=== PATIENT | male | born 1960 | race Caucasian/White ===

== ENCOUNTER 2019-02-24 10:12 | Emergency (ER) | payer OTHER ==
[2019-02-24 10:28] VITALS: BP 154/90
--- NOTE | 2019-02-24 10:39 | PHYS DOC ---
Past History Past Medical History: No Pertinent History Past Surgical History: No Surgical History Alcohol Use: None Drug Use: None Adult General Chief Complaint Chief Complaint: CONSTIPATION HPI HPI Patient is a [58-year-old male with lower abdominal discomfort and constipation no bowel movements for a week as a history of an anal fissure he tells me but denies any history of malignancy or abdominal surgeries this has not happened to him before there is just hard for him to have a bowel movement he was referred in by his primary doctor does not take any daily medications has tried [id number] stool softeners with no real relief Review of Systems Review of Systems Constitutional: Denies fever or chills [] Eyes: Denies change in visual acuity, redness, or eye pain [] HENT: Denies nasal congestion or sore throat [] Respiratory: Denies cough or shortness of breath [] Musculoskeletal: Denies back pain or joint pain [] Integument: Denies rash or skin lesions [] Neurologic: Denies headache, focal weakness or sensory changes [] Endocrine: Denies polyuria or polydipsia [] All other systems were reviewed and found to be within normal limits, except as documented in this note. Current Medications Current Medications Current Medications Medications (Trade) Dose Ordered Sig/Keyla Start Time Stop Time Status Last Admin Dose Admin Fentanyl Citrate (Fentanyl 2ml Vial) 50 mcg 1X ONCE 02/24/19 10:45 02/24/19 10:46 UNV Sodium Chloride 1,000 ml @ 1,000 mls/hr 1X ONCE 02/24/19 10:45 02/24/19 11:44 UNV Allergies Allergies Allergies Coded Allergies Type Severity Reaction Last Updated Verified No Known Drug Allergies 02/24/19 No Physical Exam Physical Exam Constitutional: Well developed, well nourished, no acute distress, non-toxic appearance. [] HENT: Normocephalic, atraumatic, bilateral external ears normal, oropharynx moist, no oral exudates, nose normal. [] Eyes: PERRLA, EOMI, conjunctiva normal, no discharge. [] Neck: Normal range of motion, no tenderness, supple, no stridor. [] Pulmonary: Normal respiratory effort no increased work of breathing no obvious chest wall trauma Abdomen: Bowel sounds normal, soft, suprapubic tenderness, no masses, no pulsatile masses. [] rectal ttp noted as well no blood. Skin: Warm, dry, no erythema, no rash. [] Back: No tenderness, no CVA tenderness. [] Extremities: No tenderness, no cyanosis, no clubbing, ROM intact, no edema. [] Neurologic: Alert and oriented X 3, normal motor function, normal sensory function, no focal deficits noted. [] Psychologic: Affect normal, judgement normal, mood normal. [] Current Patient Data Vital Signs Vital Signs Date Time Temp Pulse Resp B/P (MAP) Pulse Ox O2 Delivery O2 Flow Rate FiO2 02/24/19 10:28 97.5 96 18 98 Room Air EKG EKG [] Radiology/Procedures Radiology/Procedures []ne Temperature (Fahrenheit): * 97.5 degrees F (97.6-99.5) L Patient Temperature * 97.5 degrees F (97.5-99.5) L Temperature Source * Oral Blood Pressure Systolic * 154 mm Hg (100-140) H Blood Pressure Diastolic * 90 mm Hg (60-100) Blood Pressure Mean * 111 mm Hg Pulse Rate * 96 beats per minute (60-90) H Impressions: IMPRESSION: 1. Large abscess identified in the right lower quadrant abdomen abutting the redundant sigmoid colon and cecum. The source of abscess is difficult to evaluate could be sigmoid colon diverticulitis or an appendiceal abscess. 2. A 2.2 cm cystic structure identified in the right lobe of the liver could be a cyst or cystic lesion. Follow-up MRI can be considered. 3. 6.5 mm nodule right middle lobe of the lung. Follow-up CT per Fleischner Society guidelines in 6 months. Course & Med Decision Making Course & Med Decision Making Pertinent Labs and Imaging studies reviewed. (See chart for details) [] i told the patient about the need for repeat imaging and follow up in6 months with primary doctor regrading incidental ct finding i spoke ale mckee accepted patient spoke with jackie will consult at [facility]. bri given no peritoneal signs on exam Dragon Disclaimer Dragon Disclaimer This electronic medical record was generated, in whole or in part, using a voice recognition dictation system. Departure Departure: Impression: Primary Impression: Intra-abdominal abscess Disposition: XFER SHT-TRM HOSP Condition: STABLE Referrals: ZEKE DURAN MD (PCP) JANET KWOK MD Feb 24, 2019 10:39
[2019-02-24] MEDS ORDERED: IV NORMAL SALINE 1,000ML 1,000 ML IV ONE (10:45)
[2019-02-24 11:12] LABS: BASO # 0.1 x10^3/uL (0.0-0.2); BASO % 0 % (0-3); EOS # 0.1 x10^3/uL (0.0-0.7); EOS % 1 % (0-3); HEMATOCRIT 46.5 % (39.0-53.0); HEMOGLOBIN 15.9 g/dL (13.0-17.5); LYMPH # 0.8 x10^3/uL (1.0-4.8); LYMPH % 6 % (24-48); MEAN CORPUSCULAR HEMOGLOBIN 32 pg (25-35); MEAN CORPUSCULAR HGB CONC 34 g/dL (31-37); MEAN CORPUSCULAR VOLUME 95 fL (79-100); MONO # 1.5 x10^3/uL (0.0-1.1); MONO % 11 % (0-9); NEUT # 11.5 x10^3uL (1.8-7.7); NEUT % 83 % (31-73); PLATELET COUNT 358 x10^3/uL (140-400); RED CELL DISTRIBUTION WIDTH 12.8 % (11.5-14.5); WHITE BLOOD COUNT 13.9 x10^3/uL (4.0-11.0)
[2019-02-24 11:24] LABS: ALBUMIN 3.3 g/dL (3.4-5.0); ALBUMIN/GLOBULIN RATIO 0.8 (1.0-1.7); CALCIUM 9.1 mg/dL (8.5-10.1); CREATININE 0.9 mg/dL (0.7-1.3); GFR 86.1; POTASSIUM 3.9 mmol/L (3.5-5.1); TOTAL BILIRUBIN 0.9 mg/dL (0.2-1.0); TOTAL PROTEIN 7.7 g/dL (6.4-8.2)
[2019-02-24] MEDS ORDERED: IOHEXOL 300 MG/ML 75 ML VIAL. IV ONE (11:45)
[2019-02-24 11:47] LABS: BACTERIA,URINE 0 /HPF (0-FEW); BILIRUBIN,URINE NEG (NEG); CLARITY,URINE CLEAR; COLOR,URINE AMBER; GLUCOSE,URINE NEG (NEG); NITRITE,URINE NEG (NEG); UROBILINOGEN,URINE 0.2 mg/dL (0.2 mg/dL); WBC,URINE RARE /HPF (0-4)
--- NOTE | 2019-02-24 12:25 | RAD ---
Examination: CT of the abdomen pelvis with IV contrast HISTORY: History of left lower quadrant abdominal pain, constipation COMPARISON: None available TECHNIQUE: Axial CT images of the abdomen pelvis were performed with IV contrast. Coronal and sagittal reformats are performed. Exposure: One or more of the following individualized dose reduction techniques were utilized for this examination: 1. Automated exposure control 2. Adjustment of the mA and/or kV according to patient size 3. Use of iterative reconstruction technique FINDINGS: Partially visualized 6.5 mm nodule identified in the right middle lobe of the lung. The bibasilar lungs are clear. No evidence of free air identified in the abdomen. Diffuse decreased attenuation noted in the liver likely hepatic steatosis. There is a cystic hypodensity identified in the right lobe of the liver measuring 2.2 cm. The spleen, adrenals grossly appears unremarkable. The stomach is minimally distended. The visualized pancreas grossly appears unremarkable. The small bowel is nondilated. There is a large fluid collection with multiple foci of air identified in the right lower quadrant of the abdomen abutting the sigmoid colon and the cecum measuring 7.5 x 6.7 cm likely abscess with surrounding inflammatory fat stranding. Urinary bladder is mildly distended. Mild thickened appearance of the urinary bladder wall. Small amount of fluid free fluid identified in the pelvis The bilateral kidneys enhance symmetrically. Moderate degenerative changes thoracolumbar spine. IMPRESSION: 1. Large abscess identified in the right lower quadrant abdomen abutting the redundant sigmoid colon and cecum. The source of abscess is difficult to evaluate could be sigmoid colon diverticulitis or an appendiceal abscess. 2. A 2.2 cm cystic structure identified in the right lobe of the liver could be a cyst or cystic lesion. Follow-up MRI can be considered. 3. 6.5 mm nodule right middle lobe of the lung. Follow-up CT per Fleischner Society guidelines in 6 months. Electronically signed by: Chintan Orellana MD (02/24/2019 12:22 PM) [id number]
[2019-02-24] MEDS ORDERED: PIPERACILLIN/TAZOBACTAM 3.375 GM in IV NORMAL SALINE 50ML 50 ML IV ONE (12:45)
[2019-02-24] MEDS ORDERED: PIPERACILLIN/TAZOBACTAM 3.375 GM VIAL IV ONE (12:47)
[2019-02-24] MEDS ORDERED: IV NORMAL SALINE 50ML 50 ML ONE (12:47)
[2019-02-24] MEDS ORDERED: MORPHINE SULFATE 4 MG/ML DISP.SYRIN. IV ONE (13:00)
[2019-02-24] MEDS ORDERED: ONDANSETRON PF 4 MG/2 ML VIAL. IVP ONE (13:00)
== END 2019-02-24 14:10 | disposition short-term general hospital (02) ==
LOC: ER 10:12
DX: K65.1 Peritoneal abscess (principal)
CPT/HCPCS: 36415; 74177; 80053; 81001; 85025; 96365; 96375; 99285; J2270; J2405; J2543; J3010; Q9967; 96361; J7030

== ENCOUNTER 2020-04-03 08:38 | Emergency (ER) | payer OTHER ==
[~2020-04-03] VITALS: Ht 182.9 cm; Wt 99.7 kg
--- NOTE | 2020-04-03 09:14 | PHYS DOC ---
Past History Past Medical History: Alcoholism, Diverticulitis Past Surgical History: Other Additional Past Surgical Histo: RECTUM SURGERY, SURGERY DIVERTICULITIS Smoking: Non-smoker Alcohol Use: Occasionally Additional Alcohol Information: DRINKS 5-6 BEERS NIGHTLY Drug Use: None Adult General Chief Complaint Chief Complaint: ABDOMINAL PAIN HPI HPI Patient is a 59-year-old male presenting for lower abdominal pain. Reports this started yesterday evening while at rest. Nothing known makes better, certain body movements make worse. Pain is diffuse throughout abdomen but more focal in suprapubic area. States it is currently 7 out of 10 in severity at this time. Timing of symptoms has waxed and waned but has been more constant over past 4 hours prompting him to come in to visit our ER today. Reports history of diverticulitis in the past requiring hospitalization, does not know if this feels like prior episode. He sees a primary care physician and does not have any known medical diagnoses, takes Colace daily but no other medications. He does admit to heavy alcohol use and consumes 5-6 beers nightly. He denies any fever, URI-like symptoms, COVID-19 contact, chest pain, shortness of breath, urinary symptoms, changes in bladder or bowel function, no neurologic deficits noted. He has never had surgery on his abdomen, his never had an ultrasound of his abdomen Review of Systems Review of Systems Fourteen body systems of review of systems have been reviewed. See HPI for pertinent positives and negative responses, other reeves all other systems are negative, non-pertinent or non-contributory Allergies Allergies Allergies Coded Allergies Type Severity Reaction Last Updated Verified No Known Drug Allergies 04/03/20 No Physical Exam Physical Exam Constitutional: Well developed, well nourished, no acute distress, non-toxic appearance. HENT: Normocephalic, atraumatic, bilateral external ears normal, oropharynx moist, no oral exudates, nose normal. Eyes: PERRLA, EOMI, conjunctiva normal, no discharge. Neck: Normal range of motion, no tenderness, supple, no stridor. Cardiovascular: Heart rate regular, sinus rhythm, no murmurs rubs or gallops Lungs & Thorax: Bilateral breath sounds clear to auscultation Abdomen: Bowel sounds normal, soft, diffusely tender with guarding present, no rebound, no masses, no pulsatile masses. No peritoneal signs Skin: Warm, dry, no erythema, no rash. Back: No tenderness, no CVA tenderness. Extremities: No tenderness, no cyanosis, no clubbing, ROM intact, no edema. Neurologic: Alert and oriented X 3, grossly normal motor & sensory function, no focal deficits noted. Psychologic: Affect normal, judgement normal, mood normal. Current Patient Data Vital Signs Vital Signs Date Time Temp Pulse Resp B/P (MAP) Pulse Ox O2 Delivery O2 Flow Rate FiO2 04/03/20 08:56 99.8 114 18 126/77 (93) 96 Room Air Lab Results Laboratory Tests Test 04/03/20 09:35 04/03/20 11:30 White Blood Count 10.4 x10^3/uL (4.0-11.0) Red Blood Count 4.59 x10^6/uL (4.30-5.70) Hemoglobin 15.2 g/dL (13.0-17.5) Hematocrit 44.1 % (39.0-53.0) Mean Corpuscular Volume 96 fL (79-100) Mean Corpuscular Hemoglobin 33 pg (25-35) Mean Corpuscular Hemoglobin Concent 34 g/dL (31-37) Red Cell Distribution Width 13.0 % (11.5-14.5) Platelet Count 177 x10^3/uL (140-400) Neutrophils (%) (Auto) 89 % (31-73) Lymphocytes (%) (Auto) 4 % (24-48) Monocytes (%) (Auto) 6 % (0-9) Eosinophils (%) (Auto) 0 % (0-3) Basophils (%) (Auto) 1 % (0-3) Neutrophils # (Auto) 9.3 x10^3uL (1.8-7.7) Lymphocytes # (Auto) 0.4 x10^3/uL (1.0-4.8) Monocytes # (Auto) 0.6 x10^3/uL (0.0-1.1) Eosinophils # (Auto) 0.0 x10^3/uL (0.0-0.7) Basophils # (Auto) 0.1 x10^3/uL (0.0-0.2) Prothrombin Time 11.3 SEC (9.4-11.4) Prothromb Time International Ratio 1.1 (0.9-1.1) Activated Partial Thromboplast Time 24 SEC (23-33) Sodium Level 136 mmol/L (136-145) Potassium Level 3.7 mmol/L (3.5-5.1) Chloride Level 102 mmol/L (98-107) Carbon Dioxide Level 25 mmol/L (21-32) Anion Gap 9 (6-14) Blood Urea Nitrogen 13 mg/dL (8-26) Creatinine 0.9 mg/dL (0.7-1.3) Estimated GFR (Cockcroft-Gault) 85.8 BUN/Creatinine Ratio 14 (6-20) Glucose Level 135 mg/dL (70-99) Calcium Level 9.3 mg/dL (8.5-10.1) Total Bilirubin 1.4 mg/dL (0.2-1.0) Aspartate Amino Transf (AST/SGOT) 20 U/L (15-37) Alanine Aminotransferase (ALT/SGPT) 48 U/L (16-63) Alkaline Phosphatase 49 U/L (46-116) Creatine Kinase 39 U/L (39-308) Troponin I Quantitative < 0.017 ng/mL (0-0.055) Total Protein 7.2 g/dL (6.4-8.2) Albumin 3.7 g/dL (3.4-5.0) Albumin/Globulin Ratio 1.1 (1.0-1.7) Lipase 47 U/L (73-393) Urine Collection Type Void Urine Color Dianne Urine Clarity Clear Urine pH 7.0 Urine Specific Ramsay 1.010 Urine Protein Trace (NEG-TRACE) Urine Glucose (UA) Neg mg/dL (NEG) Urine Ketones (Stick) Neg mg/dL (NEG) Urine Blood Neg (NEG) Urine Nitrite Neg (NEG) Urine Bilirubin Neg (NEG) Urine Urobilinogen Dipstick 0.2 mg/dL (0.2 mg/dL) Urine Leukocyte Esterase Neg (NEG) Urine RBC Occ /HPF (0-2) Urine WBC 1-4 /HPF (0-4) Urine Squamous Epithelial Cells Occ /LPF Urine Bacteria 0 /HPF (0-FEW) Urine Mucus Slight /LPF EKG EKG EKG ordered and interpreted by myself at 0957 hrs. as sinus rhythm at 99 bpm, unremarkable intervals, no axis deviation, no ischemic findings, no STEMI Radiology/Procedures Radiology/Procedures PROCEDURE: CT ABD PELV W/ORAL&IV CONTRAST PQRS Compliance Statement: One or more of the following individualized dose reduction techniques were utilized for this examination: 1. Automated exposure control 2. Adjustment of the mA and/or kV according to patient size 3. Use of iterative reconstruction technique CT ABD PELV W/ORAL IV CONTRAST Clinical Indication: Reason: LLQ AND SUPRAPUBIC PAIN Comparison: CT abdomen and pelvis with contrast January 25, 2019. Technique: Helical CT imaging of the abdomen and pelvis is performed after 75 cc of Omnipaque 300 IV contrast. Oral contrast also administered. Findings: Respiratory motion artifact in the lung bases. Subpleural right middle lobe pulmonary nodule is more faintly seen although this may be due to motion, image 4. Size is stable. There is atelectasis in the posterior right lower lobe. The cardiac size is normal. The esophageal hiatus is widened but no hiatal hernia is seen. There may be herniation of fat. There is fatty infiltration of the liver. 2.2 cm hypodensity in the right hepatic lobe is unchanged. Common etiologies would be a cyst or hemangioma. The gallbladder, spleen, pancreas, adrenal glands, abdominal aorta, and kidneys are normal. Stomach is unremarkable. There is no small bowel obstruction. The terminal ileum is mildly thick-walled. There is inflammation surrounding the sigmoid colon. There is inflammation surrounding the cecum. The previously seen abscess in the right lower quadrant of the abdomen is significantly improved. There is residual fluid measuring 3.7 x 0.8 cm x 1.6 cm, image 68. The appendix is retrocecal and is mildly dilated and with surrounding inflammation. There are diverticula of the descending colon. Urinary bladder is normal. Prostate and seminal vesicles are normal. No pelvic free fluid. Degenerative endplate spurring of the thoracolumbar spine. The sacral iliac joints are partially fused. IMPRESSION: 1. Abscess in the right lower quadrant of the abdomen is significantly improved. Small amount of residual fluid is seen. There is persistent wall thickening and surrounding inflammation of the cecum, terminal ileum, redundant sigmoid, and appendix. 2. Fatty infiltration of the liver. Electronically signed by: Chicho Baez MD (04/03/2020 12:28 PM) [id number] Heart Score Risk Factors: Risk Factors: DM, Current or recent (<one month) smoker, HTN, HLP, family history of CAD, obesity. Risk Scores: Risk Factors: DM, Current or recent (<one month) smoker, HTN, HLP, family his tory of CAD, obesity. Course & Med Decision Making Course & Med Decision Making Pertinent Labs and Imaging studies reviewed. (See chart for details) Discussed most likely diagnosis of acute on chronic right lower quadrant abscess involving GI tract. Patient has history of drain being placed in similar area from prior abscess greater than 2 years ago. I discussed potential for IV antibiotics and recommended admission; however, patient not wanting to be admitted and to go home on oral antibiotic therapy trial. Given that patient is afebrile and hemodynamically stable without any surgical abdomen findings I feel this is appropriate I discussed case with on-call surgeon at [facility] at length, they too agreed that if patient was tolerating p.o. intake and hemodynamically stable that they would be fine with discharge home with p.o. antibiotics and close outpatient follow-up for repeat examination I discussed severity of diagnosis with patient and importance of taking prescribed Augmentin medication as scheduled to completion. I advised bowel rest as much as tolerated until patient could be seen at follow-up in outpatient setting I stressed the importance of calling his primary care physician and subsequently scheduling with surgery in outpatient setting within upcoming 7 days for repeat examination Strict return precautions were discussed with good understanding by patient, all questions and concerns addressed prior to ER departure in stable condition Dragon Disclaimer Dragon Disclaimer This electronic medical record was generated, in whole or in part, using a voice recognition dictation system. Departure Departure: Impression: Primary Impression: Abdominal abscess Disposition: 01 DC HOME SELF CARE/HOMELESS Condition: STABLE Referrals: ZEKE DURAN MD (PCP) Patient Instructions: Abscess Scripts Amoxicillin/Potassium Clav (AUGMENTIN 875-125 TABLET) 1 Each Tablet 1 TAB PO BID for ABSCESS for 7 Days, #14 TAB 0 Refills Prov: SHELDON STEPHENS DO 04/03/20 SHELDON STEPHENS DO Apr 03, 2020 09:14
[2020-04-03] MEDS ORDERED: IOHEXOL 300 MG/ML 75 ML VIAL. IV ONE (09:30)
[2020-04-03] MEDS ORDERED: IOHEXOL 240 MG/ML 50ML VIAL. ONE (09:43)
[2020-04-03] MEDS ORDERED: CONTRAST GIVEN. MC PRN (09:45)
[2020-04-03 09:52] LABS: BASO # 0.1 x10^3/uL (0.0-0.2); BASO % 1 % (0-3); EOS % 0 % (0-3); HEMATOCRIT 44.1 % (39.0-53.0); HEMOGLOBIN 15.2 g/dL (13.0-17.5); LYMPH # 0.4 x10^3/uL (1.0-4.8); LYMPH % 4 % (24-48); MEAN CORPUSCULAR HEMOGLOBIN 33 pg (25-35); MEAN CORPUSCULAR HGB CONC 34 g/dL (31-37); MEAN CORPUSCULAR VOLUME 96 fL (79-100); MONO # 0.6 x10^3/uL (0.0-1.1); MONO % 6 % (0-9); NEUT # 9.3 x10^3uL (1.8-7.7); NEUT % 89 % (31-73); PLATELET COUNT 177 x10^3/uL (140-400); RED BLOOD COUNT 4.59 x10^6/uL (4.30-5.70); WHITE BLOOD COUNT 10.4 x10^3/uL (4.0-11.0)
[2020-04-03 10:05] LABS: CALCIUM 9.3 mg/dL (8.5-10.1); CREATININE 0.9 mg/dL (0.7-1.3); GFR 85.8; POTASSIUM 3.7 mmol/L (3.5-5.1)
[2020-04-03 10:11] LABS: ALBUMIN 3.7 g/dL (3.4-5.0); ALBUMIN/GLOBULIN RATIO 1.1 (1.0-1.7); TOTAL BILIRUBIN 1.4 mg/dL (0.2-1.0); TOTAL PROTEIN 7.2 g/dL (6.4-8.2)
--- NOTE | 2020-04-03 10:22 | EKG ---
[address] [address] Test Date: 2020-04-03 Test Time: 09:52:55 Pat Name: NATALYA DOUGLAS Department: Room: Gender: M [employer]: THEODORA : 1960 Requested By: SHELDON STEPHENS Order Number: [id number] Reading MD: Measurements Intervals [place] Rate: 105 P: 48 [place]: 180 QRS: 19 QRSD: 76 T: 0 QT: 308 QTc: 411 Interpretive Statements SINUS TACHYCARDIA VENTRICULAR PREMATURE COMPLEX(ES) ST & T ABNORMALITY, CONSIDER ANTEROLATERAL ISCHEMIA OR LEFT VENTRICULAR STRAIN ABNORMAL ECG RI6.02 No previous ECG available for comparison
--- NOTE | 2020-04-03 11:27 | RAD ---
PORTABLE CHEST 1V 04/03/2020 9:14 AM INDICATION: Epigastric abdominal pain COMPARISON: None available TECHNIQUE: Portable frontal view of the chest is provided. FINDINGS: The cardiomediastinal silhouette is within normal limits. Lungs are clear. There are no significant pleural effusions. There is no pulmonary vascular congestion. No pneumothorax. No suspicious osseous abnormality. IMPRESSION: There is no acute cardiopulmonary process. Electronically signed by: Ashanti Deng MD (04/03/2020 11:24 AM) [facility]
--- NOTE | 2020-04-03 12:31 | RAD ---
PQRS Compliance Statement: One or more of the following individualized dose reduction techniques were utilized for this examination: 1. Automated exposure control 2. Adjustment of the mA and/or kV according to patient size 3. Use of iterative reconstruction technique CT ABD PELV W/ORAL IV CONTRAST Clinical Indication: Reason: LLQ AND SUPRAPUBIC PAIN Comparison: CT abdomen and pelvis with contrast January 25, 2019. Technique: Helical CT imaging of the abdomen and pelvis is performed after 75 cc of Omnipaque 300 IV contrast. Oral contrast also administered. Findings: Respiratory motion artifact in the lung bases. Subpleural right middle lobe pulmonary nodule is more faintly seen although this may be due to motion, image 4. Size is stable. There is atelectasis in the posterior right lower lobe. The cardiac size is normal. The esophageal hiatus is widened but no hiatal hernia is seen. There may be herniation of fat. There is fatty infiltration of the liver. 2.2 cm hypodensity in the right hepatic lobe is unchanged. Common etiologies would be a cyst or hemangioma. The gallbladder, spleen, pancreas, adrenal glands, abdominal aorta, and kidneys are normal. Stomach is unremarkable. There is no small bowel obstruction. The terminal ileum is mildly thick-walled. There is inflammation surrounding the sigmoid colon. There is inflammation surrounding the cecum. The previously seen abscess in the right lower quadrant of the abdomen is significantly improved. There is residual fluid measuring 3.7 x 0.8 cm x 1.6 cm, image 68. The appendix is retrocecal and is mildly dilated and with surrounding inflammation. There are diverticula of the descending colon. Urinary bladder is normal. Prostate and seminal vesicles are normal. No pelvic free fluid. Degenerative endplate spurring of the thoracolumbar spine. The sacral iliac joints are partially fused. IMPRESSION: 1. Abscess in the right lower quadrant of the abdomen is significantly improved. Small amount of residual fluid is seen. There is persistent wall thickening and surrounding inflammation of the cecum, terminal ileum, redundant sigmoid, and appendix. 2. Fatty infiltration of the liver. Electronically signed by: Chicho Baez MD (04/03/2020 12:28 PM) [id number]
[2020-04-03 12:47] LABS: BACTERIA,URINE 0 /HPF (0-FEW); BILIRUBIN,URINE NEG (NEG); CLARITY,URINE CLEAR; COLOR,URINE AMBER; GLUCOSE,URINE NEG (NEG); NITRITE,URINE NEG (NEG); RBC,URINE OCC /HPF (0-2); SQUAMOUS EPITHELIAL CELL,UR OCC /LPF; UROBILINOGEN,URINE 0.2 mg/dL (0.2 mg/dL)
[2020-04-03] MEDS ORDERED: AMOX1TAB61 PO (12:52)
[2020-04-03] MEDS ORDERED: ACETAMINOPHEN 325 MG TABLET PO ONE (13:00)
[2020-04-03] MEDS: AMOXICILLIN/K CLAV 875/125MG TABLET. PO ONE ×2 (13:02→13:24)
[2020-04-03 13:28] VITALS: BP 132/80
== END 2020-04-03 13:28 | disposition home or self-care (01) ==
LOC: ER 08:38
DX: L02.211 Cutaneous abscess of abdominal wall (principal); F10.20 Alcohol dependence, uncomplicated; Y90.9 Presence of alcohol in blood, level not specified
CPT/HCPCS: 36415; 71045; 74177; 80053; 81001; 82550; 83690; 84484; 85025; 85610; 85730; 93005; 96374; 99285; J3010; Q9967